=== PATIENT | female | born 1990 | race Caucasian/White ===

== ENCOUNTER → 2017-03-05 | Outpatient (CLI) | payer OTHER | END | disposition home or self-care (01) | LOC: CVU 15:42 | PROVIDERS: ATTEND Internal Medicine Cardiovascular Disease | DX: I08.1 Rheumatic disorders of both mitral and tricuspid valves (principal); I37.1 Nonrheumatic pulmonary valve insufficiency | CPT/HCPCS: 93306 ==

== ENCOUNTER 2017-03-23 11:23 | Inpatient (IN) | payer OTHER ==
[~2017-03-23] VITALS: Ht 172.7 cm; Wt 108.6 kg
[2017-04-02] MEDS ORDERED: OXYTOCIN 30U/ 0.9% NaCL 500ML 500 ML IV ONE (19:52)
[2017-04-02] MEDS ORDERED: ONDANSETRON 2MG/ML, 2ML IVPush PRN (20:00)
[2017-04-02] MEDS: PLEASE ENTER HEIGHT AND WEIGHT MC SCH (20:00)
[2017-04-02] MEDS ORDERED: TERBUTALINE 1 MG/ML, 1ML IVPush PRN (20:00)
[2017-04-02] MEDS ORDERED: FENTANYL PF 100 MCG/2ML IV PRN (20:00)
[2017-04-02] MEDS ORDERED: CALCIUM CARBONATE 500 MG TAB.CHEW PO PRN (20:00)
[2017-04-02] MEDS ORDERED: MISOPROSTOL 25 MCG TABLET VG PRN (20:00)
[2017-04-02] MEDS ORDERED: MISOPROSTOL 25 MCG TABLET ONE (20:22)
[2017-04-02] MEDS ORDERED: PANT20TA2 PO (20:55)
[2017-04-02] MEDS ORDERED: DOCU-30 PO (20:57)
[2017-04-02] MEDS ORDERED: [UNRECOGNIZED DRUG - CODE] PO (20:57)
[2017-04-02] MEDS ORDERED: DIPHENHYDRAMINE 25 MG CAPSULE ONE (23:06)
[2017-04-02] MEDS ORDERED: DIPHENHYDRAMINE 12.5MG/5ML, 10ML UDC PO PRN (23:30)
[2017-04-03] MEDS ORDERED: MISOPROSTOL 25 MCG TABLET ONE (00:18)
[2017-04-03] MEDS ORDERED: FENTANYL PF 100 MCG/2ML ONE ×2 (03:35→05:07)
[2017-04-03] MEDS ORDERED: ONDANSETRON 2MG/ML, 2ML ONE (03:35)
[2017-04-03] MEDS: FENTANYL PF 100 MCG/2ML IVPush PRN ×2 (03:44→05:09)
[2017-04-03] MEDS: D5%-LACTATED RINGERS 1,000 ML IV SCH ×4 (03:52→19:52)
[2017-04-03] MEDS: PLEASE ENTER HEIGHT AND WEIGHT MC SCH ×3 (04:00→20:00)
[2017-04-03] MEDS: LACTATED RINGERS 1,000 ML IV SCH ×6 (05:11→21:01)
[2017-04-03] MEDS ORDERED: BUPIVACAINE/PF 0.25% ONE (05:53)
[2017-04-03] MEDS ORDERED: FENTANYL/BUPIV./NS/PF 250 ML EPIDCONT ONE (05:53)
[2017-04-03] MEDS ORDERED: FENTANYL/BUPIV./NS/PF 250 ML EPIDCONT SCH (05:54)
[2017-04-03] MEDS ORDERED: LACTATED RINGERS 1,000 ML IVBOLUS PRN (06:00)
[2017-04-03] MEDS ORDERED: NALOXONE 0.4 MG/ML, 1ML IVPush PRN (06:00)
[2017-04-03] MEDS ORDERED: EPHEDRINE 50 MG/ML, 1ML IVPush PRN (06:00)
[2017-04-03] MEDS ORDERED: LIDOCAINE 1%, 20ML ONE (08:09)
[2017-04-03] MEDS ORDERED: OXYTOCIN 30U/ 0.9% NaCL 500ML 500 ML ONE ×2 (08:09→19:22)
[2017-04-03] MEDS ORDERED: MISOPROSTOL 200 MCG TABLET ONE (08:09)
[2017-04-03] MEDS: OXYTOCIN 30U/ 0.9% NaCL 500ML 500 ML IV PRN ×2 (08:19→19:24)
[2017-04-03] MEDS ORDERED: IBUPROFEN 600 MG TABLET ONE (19:00)
[2017-04-03] MEDS: IBUPROFEN 200 MG TABLET PO PRN (19:01)
[2017-04-03] MEDS: OXYTOCIN 30U/ 0.9% NaCL 500ML 500 ML IV SCH (20:25)
[2017-04-03] MEDS ORDERED: DOCUSATE 100 MG CAPSULE PO PRN (20:30)
[2017-04-03] MEDS ORDERED: HYDROcodone/APAP 5/325 TABLET PO PRN (20:30)
[2017-04-03] MEDS ORDERED: MISOPROSTOL 200 MCG TABLET PO PRN (20:30)
[2017-04-03] MEDS ORDERED: ONDANSETRON 2MG/ML, 2ML IV PRN (20:30)
[2017-04-03] MEDS ORDERED: BISACODYL 10 MG SUPP PR PRN (20:30)
[2017-04-03] MEDS ORDERED: HYDROcodone/APAP 5/325 TABLET ONE (20:31)
[2017-04-03] MEDS: HYDROcodone/APAP 5/325 TABLET PO PRN (20:34)
[2017-04-03 22:00] VITALS: BP 107/66
[2017-04-04] MEDS: IBUPROFEN 200 MG TABLET PO PRN ×3 (00:51→13:43)
[2017-04-04] MEDS: HYDROcodone/APAP 5/325 TABLET PO PRN ×4 (00:51→18:13)
[2017-04-04 02:00] VITALS: BP 108/62
[2017-04-04] MEDS: PLEASE ENTER HEIGHT AND WEIGHT MC SCH (04:00)
[2017-04-04] MEDS ORDERED: RHOGAM FROM BLOOD BANK 1 NOTE EA IM/IV ONE (04:30)
[2017-04-04] MEDS: OXYTOCIN 30U/ 0.9% NaCL 500ML 500 ML IV SCH (06:25)
[2017-04-04 07:34] VITALS: BP 110/65
[2017-04-04] MEDS ORDERED: PRENATAL VIT/IRON/FA 1 EACH TABLET ONE (07:35)
[2017-04-04] MEDS ORDERED: PRENATAL VIT/IRON/FA 1 EACH TABLET PO SCH (09:00)
[2017-04-04 12:30] VITALS: BP 103/67
[2017-04-04] MEDS ORDERED: IBUP-1222 PO (13:37)
[2017-04-04] MEDS ORDERED: HYDR-3240 PO ×2 (13:38)
== END 2017-04-04 19:23 | disposition home or self-care (01) | DRG 775 ==
LOC: LDIP 04-02 19:50 → 2NW 04-03 21:40
PROVIDERS: ADMIT Student in an Organized Health Care Education/Training Program; ATTEND Student in an Organized Health Care Education/Training Program
PROC: 10E0XZZ Delivery of Products of Conception, External Approach (ICD-10-PCS; principal; 2017-04-03)
PROC: 0UQGXZZ Repair Vagina, External Approach (ICD-10-PCS; 2017-04-03)
PROC: 00HU33Z Insertion of Infusion Device into Spinal Canal, Percutaneous Approach (ICD-10-PCS; 2017-04-03)
PROC: 3E0R3CZ (ICD-10-PCS; 2017-04-03)
PROC: 10907ZC Drainage of Amniotic Fluid, Therapeutic from Products of Conception, Via Natural or Artificial Opening (ICD-10-PCS; 2017-04-03)
PROC: 3E0334Z Introduction of Serum, Toxoid and Vaccine into Peripheral Vein, Percutaneous Approach (ICD-10-PCS; 2017-04-04)
DX: O48.0 Post-term pregnancy (principal); O71.4 Obstetric high vaginal laceration alone; O99.214 Obesity complicating childbirth; E66.9 Obesity, unspecified; O26.893 Other specified pregnancy related conditions, third trimester; R00.2 Palpitations; K08.409 Partial loss of teeth, unspecified cause, unspecified class; O76 Abnormality in fetal heart rate and rhythm complicating labor and delivery; Z37.0 Single live birth; Z3A.41 41 weeks gestation of pregnancy; Z67.21 Type B blood, Rh negative
CPT/HCPCS: 36415; 85025; 85461; 86850; 86900; J2405; J2790; J3010; J2590; J7120; J7121

== ENCOUNTER 2017-03-24 19:02 | Outpatient (CLI) | payer OTHER ==
[2017-03-24 20:58] VITALS: BP 106/65
== END 2017-03-24 19:50 | disposition home or self-care (01) ==
LOC: LDOP 19:02
PROVIDERS: ATTEND Student in an Organized Health Care Education/Training Program
DX: O36.8130 Decreased fetal movements, third trimester, not applicable or unspecified (principal); O48.1 Prolonged pregnancy; Z3A.49 Greater than 42 weeks gestation of pregnancy
CPT/HCPCS: 59025; 99211; G0463